=== PATIENT | female | born 1960 | race American Indian/Alaskan Native ===

== ENCOUNTER 2017-01-26 10:25 | Emergency (ER) | payer OTHER ==
[2017-01-26 11:15] LABS: Basophils % (Auto) 0.5 % (0.0-1.8); Eosinophils % (Auto) 4.7 % (0.0-4.3); Hematocrit 38.9 % (30.3-42.9); Hemoglobin 12.4 gm/dl (10.1-14.3); Mean Corpuscular HGB Conc 32 % (30-34); Mean Corpuscular Volume 75 fl (79-97); Platelet Count 363 K/mm3 (140-440); Red Blood Count 5.17 M/mm3 (3.65-5.03); Red Cell Distribution Width 15.9 % (13.2-15.2); White Blood Count 8.1 K/mm3 (4.5-11.0)
[2017-01-26 11:18] LABS: Mean Corpuscular Hemoglobin 24 pg (28-32)
[2017-01-26 11:37] LABS: Anion Gap 16 mmol/L; BUN/Creatinine Ratio 18.88; Blood Urea Nitrogen 17 mg/dL (7-17); Calcium 9.5 mg/dL (8.4-10.2); Carbon Dioxide 26 mmol/L (22-30); Glucose 94 mg/dL (65-100); Potassium 3.6 mmol/L (3.6-5.0); Sodium 140 mmol/L (137-145)
[2017-01-26 11:38] LABS: Creatine Kinase MB 3.6 ng/mL (0.0-4.0)
--- NOTE | 2017-01-26 11:39 | Emergency Department Report ---
Entered by PATRICA COTA, acting as scribe for ARABELLA ALCALA PA. Stated Complaint: CHEST TIGHTNESS Time Seen by Provider: 01/26/17 10:49 - HPI History of Present Illness: Patient presents to the ED c/o chest tightness that began this morning at 9:50. Describes pain as a flutter, which she rates is an 8/10 jessica severity. Notes previous similar episode of chest pain 7 years ago and a cardiac catheterization was performed, which had normal results. - ROS Review of Systems: All system are negative unless stated in HPI above. - Exam Vital Signs: Vital Signs 01/26/17 11:08 Temperature 98.5 F Pulse Rate 68 Respiratory 18 Rate Blood Pressure 106/65 O2 Sat by Pulse 99 Oximetry Physical Exam: General: well nourished, well developed, nontoxic in appearance, in no acute distress Respiratory: Lungs clear to auscultation bilaterally Cardiovascular: S1/S2 regular rate and rhythm. No murmur. MSE screening note: Focused history and physical exam performed. Due to findings the following was ordered: ED Medical Decision Making - Lab Data Result diagrams: 01/26/17 11:03 01/26/17 11:03 - Medical Decision Making Medical decision making: Patient seen by provider in triage area. Appropriate protocol activated and patient to main ED to be seen by provider ED Disposition for MSE Condition: Stable This documentation as recorded by the scribe,PATRICA COTA,accurately reflects the service I personally performed and the decisions made by me,ARABELLA ALCALA PA.
[2017-01-26] MEDS ORDERED: MORPHINE IV ONE (14:05)
--- NOTE | 2017-01-26 14:08 | Emergency Department Report ---
ED Chest Pain HPI - General Chief Complaint: Chest Pain Stated Complaint: CHEST TIGHTNESS Time Seen by Provider: 01/26/17 10:52 Source: patient Mode of arrival: Ambulatory Limitations: No Limitations - History of Present Illness Initial Comments: 56-year-old female presents to the emergency department complaining of chest pain. States she developed the onset of chest tightness in the center of her chest this morning at approximately 8 AM. Patient states she was walking with the onset of pain. Pain has been constant since onset. She denies radiation of the pain. She states that she was feeling a little lightheaded earlier, but this has resolved. She denies shortness of breath, diaphoresis, nausea, or vomiting. She has not loss consciousness. There are no other complaints. MD Complaint: chest pain -: Sudden, This morning Time: 08:00 Onset: during exertion Pain Location: substernal Pain Radiation: none Severity: moderate Severity scale (0 -10): 4 Quality: tightness Consistency: constant Improves With: nothing Worsens With: nothing re: denies: nausea, vomting, diaphoresis, dyspnea Treatments Prior to Arrival: none Aspirin use within the Past 7 Days: (0) No - Related Data Allergies Allergy/AdvReac Type Severity Reaction Status Date / Time No Known Allergies Allergy Unverified 01/26/17 11:13 KAR score - Kar Score Age > 65: (0) No Aspirin use within the Past 7 Days: (0) No 3 or more CAD Risk Factors: (0) No 2 or more Angina events in past 24 hrs: (0) No Known CAD with more than 50% Stenosis: (0) No Elevated Cardiac Markers: (0) No ST Deviation Greater than 0.5mm: (0) No KAR Score: 0 ED Review of Systems ROS: Stated complaint: CHEST TIGHTNESS Other details as noted in HPI Comment: All other systems reviewed and negative Cardiovascular: chest pain ED Past Medical Hx - Past Medical History Previous Medical History?: Yes Hx GERD: Yes - Surgical History Past Surgical History?: Yes Additional Surgical History: fibroids - Family History Family history: CAD/OK - Social History Smoking Status: Never Smoker Substance Use Type: Alcohol ED Physical Exam - General Limitations: No Limitations General appearance: alert, in no apparent distress - Head Head exam: Present: atraumatic, normocephalic - Eye Eye exam: Present: normal appearance, PERRL, EOMI - ENT ENT exam: Present: normal exam, normal orophraynx, mucous membranes moist - Neck Neck exam: Present: normal inspection, full ROM. Absent: tenderness - Respiratory Respiratory exam: Present: normal lung sounds bilaterally. Absent: respiratory distress - Cardiovascular Cardiovascular Exam: Present: regular rate, normal rhythm, normal heart sounds - GI/Abdominal GI/Abdominal exam: Present: soft, normal bowel sounds. Absent: distended, tenderness - Extremities Exam Extremities exam: Present: normal inspection, full ROM. Absent: tenderness - Back Exam Back exam: Present: normal inspection, full ROM. Absent: tenderness - Neurological Exam Neurological exam: Present: alert, oriented X3. Absent: motor sensory deficit - Skin Skin exam: Present: warm, dry, intact ED Course Vital Signs 01/26/17 01/26/17 01/26/17 11:08 14:02 14:12 Temperature 98.5 F 97.8 F Pulse Rate 68 71 Respiratory 18 19 Rate Blood Pressure 106/65 Blood Pressure 106/69 [Left] O2 Sat by Pulse 99 98 98 Oximetry 01/26/17 01/26/17 14:13 15:00 Temperature Pulse Rate 66 Respiratory 16 16 Rate Blood Pressure 107/63 Blood Pressure [Left] O2 Sat by Pulse 98 100 Oximetry ED Medical Decision Making - Lab Data Result diagrams: 01/26/17 11:03 01/26/17 11:03 - EKG Data -: EKG Interpreted by [place] EKG shows normal: sinus rhythm, axis, intervals, QRS complexes, ST-T waves Rate: normal - EKG Data When compared to previous EKG there are: previous EKG unavailable Interpretation: normal EKG - Medical Decision Making Patient reports her pain is resolved with medication. Lab results reviewed and discussed with the patient. Patient has had a nonischemic ECG and 3 negative troponins. It is likely that her pain is secondary to esophageal spasm related to GERD. Patient will be discharged home at this time to follow up with her primary care physician. - Differential Diagnosis atypical chest pain, esophageal spasm, GERD Critical care attestation.: If time is entered above; I have spent that time in minutes in the direct care of this critically ill patient, excluding procedure time. ED Disposition Clinical Impression: Non-cardiac chest pain Disposition: DISCHARGED TO HOME OR SELFCARE Is pt being admited?: No Condition: Stable Instructions: Chest Pain (ED) Referrals: PRIMARY CARE, [Primary Care Provider] - 3-5 Days Time of Disposition: 16:45
[2017-01-26 15:26] VITALS: BP 107/63
== END 2017-01-26 17:00 | disposition home or self-care (01) ==
LOC: ED 10:25
DX: R07.89 Other chest pain (principal); K21.9 Gastro-esophageal reflux disease without esophagitis
CPT/HCPCS: 36415; 80048; 82550; 82553; 84484; 85025; 93005; 93010; 96374; 99284; J2270